=== PATIENT | female | born 1980 | race Caucasian/White ===

== ENCOUNTER 2017-12-21 23:30 | Emergency (ER) | payer MEDICAID ==
[~2017-12-21] VITALS: Ht 172.7 cm; Wt 63.6 kg
[~2017-12-21 23:30] MED LIST: ALBU18HF2 IH; FLUC200T8 PO; PRED20TA PO; ZOF4T PO
[2017-12-21 23:39] VITALS: BP 169/103
[2017-12-21] MEDS ORDERED: CEPH500C5 PO (23:54)
[2017-12-21] MEDS ORDERED: BACI28OI9 TP (23:54)
[2017-12-21] MEDS ORDERED: FLUT16SP2 BOTHNARES (23:57)
[2017-12-22] MEDS ORDERED: bacitracin ointment unit dose packet TP ONE
[2017-12-22] MEDS ORDERED: bacitracin 15gm ointment TP ONE (00:05)
[2017-12-22] MEDS ORDERED: bacitracin ointment unit dose packet TP SCH (08:00)
== END 2017-12-22 00:12 | disposition home or self-care (01) ==
LOC: ER 23:31
DX: L98.499 Non-pressure chronic ulcer of skin of other sites with unspecified severity (principal); G89.29 Other chronic pain; F17.200 Nicotine dependence, unspecified, uncomplicated; Z88.8 Allergy status to other drugs, medicaments and biological substances; Z79.899 Other long term (current) drug therapy
CPT/HCPCS: 99283

== ENCOUNTER 2025-02-11 20:53 | Emergency (ER) | payer MEDICAID ==
[~2025-02-11] VITALS: Ht 172.7 cm; Wt 68.2 kg
[~2025-02-11 20:53] MED LIST changes: +BACI28OI9 TP; +FLUT16SP2 BOTHNARES; +HYDR28CR14 TOP; +TOBR5DRO2 RIGHTEYE
[2025-02-11 20:57] VITALS: BP 145/84; PULSE 94; RESP 18; TEMP 98; O2SAT 97
== END 2025-02-11 23:14 | disposition left against medical advice (07) ==
LOC: ER 20:54
DX: R21 Rash and other nonspecific skin eruption (principal); Z88.8 Allergy status to other drugs, medicaments and biological substances
CPT/HCPCS: 99281